=== PATIENT | male | born 1950 | race Caucasian/White ===

== ENCOUNTER → 2024-07-08 14:58 | Outpatient (CLI) | payer MEDICARE, SELFPAY ==
--- NOTE | 2024-07-08 14:59 | DI.CT.S_ITS ---
PROCEDURE: CT CHEST WO CON INDICATIONS: CHEST PAIN / PNEUMONIA TECHNIQUE: Noncontrast 5 mm thick sections acquired from the pulmonary apices to the posterior costophrenic angles. 1 mm lung window, 5 mm thick coronal and sagittal and 7 mm axial MIP reformats were then acquired. For radiation dose reduction, the following was used: automated exposure control, adjustment of mA and/or kV according to patient size. COMPARISON: Outside Facility, CR, XR CHEST 2V, 06/10/2024, 8:49. FINDINGS: Image quality: Diagnostic. Lower Neck: No enlarged lymph nodes. Thyroid: No thyroid nodules which require sonographic follow up, per consensus guidelines. Axillae: No enlarged lymph nodes. Chest Wall: Unremarkable. Bones: Unremarkable. Lungs and Pleura: No pneumothorax or significant pleural effusions. Tiny 2 mm nodule is seen in posterior lateral aspect of right lower lobe series 3, image 156. No suspicious pulmonary nodules. Airspace opacity in posterior aspect of right lung base is seen and measures up to 4.9 x 2.0 cm in size series 2, image 101. Heart: Heart size is normal. No pericardial effusion. Thoracic Vessels: The aorta and pulmonary arteries demonstrate normal size. 2 vessel coronary artery atherosclerotic calcifications are seen. Mediastinum and Jocelynn: No enlarged lymph nodes. Esophagus: No wall thickening. No hiatal hernia. Upper Abdomen: Visualized portion of liver shows multiple well-circumscribed hypodensities scattered in liver parenchyma which may represent Paddock cysts. IMPRESSION: 1. Small airspace opacity involving posterior aspect of right lung base measures 4.9 x 2.0 cm in size and may represent small loculated pleural effusion . Recurrent pneumonia cannot be entirely excluded. Continue radiographic follow-up is recommended. Tiny 2 mm solid nodule seen in right lower lobe. No suspicious pulmonary nodule is seen. No pneumothorax. Airway is patent. 2. No mediastinal or hilar lymphadenopathy by size criteria. 2 vessel coronary artery atherosclerotic calcifications. 3. Possible hepatic cysts as above. Non urgent CT of abdomen liver protocol follow-up can be done if clinically indicated. Dictated by: Dell Fraga M.D. on 07/08/2024 at 15:43 Approved by: Dell Fraga M.D. on 07/08/2024 at 15:48
== END ==
PROVIDERS: PCP Family Medicine; Referring Provider Internal Medicine Critical Care Medicine; Visit Provider Internal Medicine Critical Care Medicine
DX: J18.9 Pneumonia, unspecified organism (principal); R91.1 Solitary pulmonary nodule; I25.10 Atherosclerotic heart disease of native coronary artery without angina pectoris
CPT/HCPCS: 71250

== ENCOUNTER → 2024-07-27 08:20 | Outpatient (CLI) | payer MEDICARE, SELFPAY | PROVIDERS: PCP Family Medicine; Referring Provider Internal Medicine Critical Care Medicine; Visit Provider Internal Medicine Critical Care Medicine | DX: R06.02 Shortness of breath (principal) | CPT/HCPCS: 94060; 94726; 94729 ==

== ENCOUNTER → 2024-10-14 08:03 | Outpatient (CLI) | payer MEDICARE, SELFPAY ==
--- NOTE | 2024-10-14 08:04 | DI.CT.S_ITS ---
PROCEDURE: CT CHEST WO CON INDICATIONS: abnormal CT TECHNIQUE: Noncontrast 5 mm thick sections acquired from the pulmonary apices to the posterior costophrenic angles. 1 mm lung window, 5 mm thick coronal and sagittal and 7 mm axial MIP reformats were then acquired. For radiation dose reduction, the following was used: automated exposure control, adjustment of mA and/or kV according to patient size. COMPARISON: [facility], CT, CT CHEST WO [facility], 07/08/2024, 15:19. FINDINGS: Image quality: Excellent. Decreased size of suspected loculated right pleural effusion (sees axial series 2 image 103 she now measures up to approximately 2.7 cm transverse by 1.7 cm cc by 1 cm AP maximal dimensions previously measured approximately 4.9 x 2.0 x 2.0 cm. 2 millimeter calcified granuloma right lower lobe superior segment laterally (series 3, image 166 unchanged. Other scattered granuloma unchanged. No new nodules. A few mildly enlarged mediastinal, aortic or pulmonary, anterior tracheal, paratracheal, subcarinal lymph nodes the largest , aortic or pulmonary measuring up to 9 millimeter short axis commonly reactive/inflammatory unchanged. Numerous areas of heterogeneous low attenuation throughout the liver commonly hepatic cysts the largest in the left lobe measuring 2 centimeters unchanged. Moderate calcifications of the coronary arteries predominantly left anterior descending and mild calcifications of the aortic arch unchanged. Moderate degenerative changes of the thoracic spine with multilevel anterior bridging osteophytes suggestive of diffuse idiopathic skeletal hyperostosis unchanged. No pneumothorax, no pleural effusion, no pericardial effusion, no lobar consolidation. Lower Neck: No enlarged lymph nodes. Thyroid: No thyroid nodules which require sonographic follow up, per consensus guidelines. Heart: Heart size is normal. Thoracic Vessels: The aorta and pulmonary arteries demonstrate normal size. Esophagus: No wall thickening. No hiatal hernia. IMPRESSION: Decreased size of small right posterior loculated pleural fluid. Calcified granulomata, no new nodules. Multiple low attenuation areas throughout the liver commonly hepatic cysts partially evaluated on noncontrast chest exam. If indicated CT abdomen/pelvis with contrast could be performed. Otherwise unchanged. Dictated by: Guido Colon M.D. on 10/14/2024 at 14:24 Approved by: Guido Colon M.D. on 10/14/2024 at 14:40
== END ==
PROVIDERS: PCP Family Medicine; Referring Provider Family Medicine; Visit Provider Internal Medicine Critical Care Medicine
DX: R93.89 Abnormal findings on diagnostic imaging of other specified body structures (principal); R06.02 Shortness of breath; R91.8 Other nonspecific abnormal finding of lung field; I25.10 Atherosclerotic heart disease of native coronary artery without angina pectoris; I70.0 Atherosclerosis of aorta; M47.814 Spondylosis without myelopathy or radiculopathy, thoracic region
CPT/HCPCS: 71250

== ENCOUNTER → 2025-02-28 10:44 | Outpatient (CLI) | payer MEDICARE, SELFPAY ==
--- NOTE | 2025-02-28 10:45 | DI.CT.S_ITS ---
PROCEDURE: CT CHEST WO CON INDICATIONS: effusion follow up TECHNIQUE: Noncontrast 5 mm thick sections acquired from the pulmonary apices to the posterior costophrenic angles. 1 mm lung window, 5 mm thick coronal and sagittal and 7 mm axial MIP reformats were then acquired. For radiation dose reduction, the following was used: automated exposure control, adjustment of mA and/or kV according to patient size. COMPARISON: [facility], CT, CT CHEST WO CON, 10/14/2024, 8:09. FINDINGS: Image quality: Diagnostic. Lower Neck: No enlarged lymph nodes. Thyroid: No thyroid nodules which require sonographic follow up, per consensus guidelines. Axillae: No enlarged lymph nodes. Chest Wall: Unremarkable. Bones: No aggressive appearing bony lesions. Lungs and Pleura: Patient's known focal fluid density area involving posterior lateral aspect of right lung base measures 2.7 x 1.7 x 1 cm in size now measures 1.3 x 0.7 x 0.7 cm in size on the current study series 2, image 104 and series 4, image 66. Adjacent atelectasis is seen. No new fluid collection or suspicious pulmonary nodule. Airway is patent. No pneumothorax. Heart: Heart size is normal. No pericardial effusion. Moderate LAD atherosclerotic calcifications. Thoracic Vessels: The aorta and pulmonary arteries demonstrate normal size. Mediastinum and Jocelynn: No enlarged lymph nodes. Esophagus: No wall thickening. No significant hiatal hernia. Upper Abdomen: Well-circumscribed hypodensities are again seen in visualized portion of liver likely represent hepatic cysts. IMPRESSION: 1. Interval further decrease in size of patient's known possible small loculated pleural effusion involving posterior lateral aspect of right lung base as detailed above. Mild adjacent atelectasis. No new fluid collection or suspicious pulmonary nodules. No pneumothorax. 2. No mediastinal or hilar lymphadenopathy. Dictated by: Dell Fraga M.D. on 02/28/2025 at 17:23 Approved by: Dell Fraga M.D. on 02/28/2025 at 17:27
== END ==
LOC: CT 10:45
PROVIDERS: PCP Family Medicine; Referring Provider Internal Medicine Critical Care Medicine; Visit Provider Internal Medicine Critical Care Medicine
DX: J90 Pleural effusion, not elsewhere classified (principal); J98.11 Atelectasis
CPT/HCPCS: 71250